=== PATIENT | male | born 1945 | race Two or more races ===

== ENCOUNTER 2022-12-25 19:32 | Inpatient (IN) | payer MEDICARE, OTHER ==
[~2022-12-25] VITALS: Ht 172.7 cm; Wt 91.6 kg
--- NOTE | 2022-12-25 23:12 | NUR ---
RN NOTES : ADMISSION NOTES: ADMITTED THIS 77Y/O MALE PATIENT ADMITTED FROM [facility], INITIALLY FROM [facility]. ADMITTED TO 5150 HOLD PER HOLD GD , DTO PT.HALUCINATION,HOPELESSNESS,SCHIZOPHRENIA. UPON FACE TO FACE ASSESSMENT PATIENT IS A&OX1 ,CONFUSED,ANXIOUS,DISHELVED,UNCOOPERTIVE,POOR DECISION MAKING, CHALLENGING,GUARDED, DENIES SI /HI AT THIS TIME, PT. IS POOR HISTORIAN, POOR INSIGHT ,POOR JUDGEMENT , BOTH MD AWARE AND NOTIFIED OF THE ADMISSION,BELONGINGS CONTRABAND WERE DONE , PT. REFUSED SIGNS ADMISSION CONSENT PAPER DUE TO CONFUSED,DISORGNIZED,PT. RIGHTS DISCUSS BY CASTING MACHINE OPERATOR , PROVIDE THE PT. WITH HANDBOOK, AND MEDICATIONS GUIDE, ENVIRONMENTAL SAFETY CHECK DONE, ENCOURAGED PT. VERBALIZED ANY FEELING CONCERN TO STAFF, ORIENT TO UNIT POLICY, NO ACUTE DISTRESS NOTED,VITAL SIGNS WNL ,DENIES ANY PAIN AT THIS TIME,WILL CONTINUE TO MONITOR FOR Q15 SAFETY AND BEHAVIOR.
[2022-12-25] MEDS ORDERED: BLOOD SUGAR DIAGNOSTIC 1 EACH STRIP IN ONE (23:30)
[2022-12-25] MEDS ORDERED: MAG HYDROX/AL HYDROX/SIMETH 30 ML UDC PO PRN (23:30)
[2022-12-25] MEDS ORDERED: clonazePAM 0.5 MG TABLET PO PRN (23:30)
[2022-12-25] MEDS ORDERED: TEMAZEPAM 7.5 MG CAPSULE PO PRN (23:30)
[2022-12-25] MEDS ORDERED: ACETAMINOPHEN 325 MG TABLET PO PRN (23:30)
[2022-12-25] MEDS ORDERED: MAGNESIUM HYDROXIDE 30 ML UDC PO PRN (23:30)
[2022-12-25 23:53] VITALS: BP 150/78
[2022-12-26] MEDS ORDERED: BENZ0.5T43 PO (03:04)
[2022-12-26] MEDS ORDERED: TAMS-12 PO (03:04)
[2022-12-26] MEDS ORDERED: METF-440 PO (03:04)
[2022-12-26] MEDS ORDERED: DOCU-141 PO (03:04)
[2022-12-26] MEDS ORDERED: MELO-105 PO (03:04)
[2022-12-26] MEDS ORDERED: POLY17PO4 PO (03:04)
[2022-12-26] MEDS ORDERED: BUSP10TA35 PO (03:04)
[2022-12-26] MEDS ORDERED: ERGO500040 PO (03:04)
[2022-12-26] MEDS ORDERED: FLUV50TA10 PO (03:04)
[2022-12-26] MEDS ORDERED: LISI10TA29 PO (03:04)
[2022-12-26] MEDS ORDERED: MELA3CAP2 PO (03:04)
[2022-12-26] MEDS ORDERED: NA P133E RC (03:04)
[2022-12-26] MEDS ORDERED: METH500T4 PO (03:04)
[2022-12-26] MEDS ORDERED: FINA5TAB3 PO (03:04)
[2022-12-26] MEDS ORDERED: LACT1CAP57 PO (03:04)
[2022-12-26] MEDS ORDERED: BISA-79 PO ×2 (03:04)
[2022-12-26] MEDS ORDERED: SENN-18 PO (03:04)
[2022-12-26 08:00] VITALS: BP 155/96
[2022-12-26] MEDS ORDERED: TEMAZEPAM 7.5 MG CAPSULE PO PRN (08:00)
[2022-12-26] MEDS ORDERED: clonazePAM 0.5 MG TABLET PO PRN (08:00)
[2022-12-26 08:04] LABS: CHOLESTEROL 131 mg/dL (<200); HDL CHOLESTEROL 35 mg/dL (40-60); LDL 93 mg/dL (0-99); TRIGLYCERIDES 79 mg/dL (30-150)
[2022-12-26 08:07] LABS: ALBUMIN 3.6 g/dL (3.4-5.0); BILIRUBIN,TOTAL 0.5 mg/dL (0.2-1.0); CREATININE 0.7 mg/dL (0.6-1.3); POTASSIUM 4.3 mmol/L (3.5-5.1); TOTAL PROTEIN, SERUM 7.4 g/dL (6.4-8.2)
[2022-12-26] MEDS ORDERED: busPIRone 5 MG TABLET PO SCH (09:00)
--- NOTE | 2022-12-26 12:14 | NUR ---
CHIVO Initial Discharge Note: Patient currently resides at [address] [place] [address]; ([phone]). Pt would want to go to a SNF. CHIVO will contact pt's daughter Aimee ([phone]) to gather collateral and discuss treatment/discharge plan. CHIVO will work with the pt, family, and MD to help coordinate appropriate discharge.
--- NOTE | 2022-12-26 12:15 | NUR ---
CHIVO Clinical Note: Pt placed on a 5150 hold for GD. Per hold, pt has been depressed. Patient currently resides at [address] [place] [address]; ([phone]). Pt would want to go to a SNF. CHIVO will contact pt's daughter Aimee ([phone]) to gather collateral and discuss treatment/discharge plan. CHIVO will work with the pt, family, and MD to help coordinate appropriate discharge.
[2022-12-26] MEDS: busPIRone 5 MG TABLET PO SCH ×2 (12:53→17:02)
--- NOTE | 2022-12-26 13:34 | NUR ---
CHIVO Family Contact: SW contacted pt's Yanick ([phone]) and discussed treatment/discharge plan. had concerned of pt return back home and would want this senior writer to find him placement.
[2022-12-26] MEDS ORDERED: NA PHOS,M-B/NA PHOS,DI-BA 1 EA ENEMA RC SCH (15:30)
[2022-12-26 16:00] VITALS: BP 144/96
[2022-12-26] MEDS: LACTOBACILLUS RHAMNOSUS GG 1 EACH CAP.SPRINK PO SCH (17:02)
[2022-12-26] MEDS: METFORMIN 500 MG TABLET PO SCH (17:03)
[2022-12-26] MEDS: POLYETHYLENE GLYCOL 3350 17 GM POWD.PACK PO SCH (17:03)
[2022-12-26] MEDS: MELOXICAM 7.5 MG TABLET PO SCH (17:03)
[2022-12-26] MEDS: LISINOPRIL (10MG) 10 MG TABLET PO SCH (17:04)
[2022-12-26] MEDS: FINASTERIDE (5 MG) 5 MG TABLET PO SCH (17:04)
--- NOTE | 2022-12-26 18:36 | NUR ---
RN CLOSING NOTE: MONITORED FOR HALLUCINATION,HOPELESSNESS,SCHIZOPHRENIA. PATIENT IS A&OX1 ,CONFUSED,ANXIOUS,DISHELVED, DENIES SI /HI AT THIS TIME, PT. POOR INSIGHT ,POOR JUDGEMENT. ENCOURAGED PT. VERBALIZED ANY FEELING CONCERN TO STAFF, ORIENT TO UNIT POLICY, NO ACUTE DISTRESS NOTED,VITAL SIGNS WNL ,DENIES ANY PAIN AT THIS TIME,WILL CONTINUE TO MONITOR FOR Q15 SAFETY AND BEHAVIOR.
[2022-12-26 19:35] VITALS: BP 130/82
[2022-12-26] MEDS: OLANZAPINE 10 MG TABLET PO SCH (22:29)
[2022-12-26] MEDS: FLUVOXAMINE MALEATE 50 MG TABLET PO SCH (22:30)
[2022-12-27 08:00] VITALS: BP 155/82
[2022-12-27] MEDS: METFORMIN 500 MG TABLET PO SCH ×2 (08:45→16:18)
[2022-12-27] MEDS: MELOXICAM 7.5 MG TABLET PO SCH (08:45)
[2022-12-27] MEDS: TAMSULOSIN 0.4 MG CAP.SR.24H PO SCH (08:45)
[2022-12-27] MEDS: POLYETHYLENE GLYCOL 3350 17 GM POWD.PACK PO SCH (08:45)
[2022-12-27] MEDS: busPIRone 5 MG TABLET PO SCH ×2 (08:45→16:19)
[2022-12-27] MEDS: LACTOBACILLUS RHAMNOSUS GG 1 EACH CAP.SPRINK PO SCH ×2 (08:46→16:18)
[2022-12-27] MEDS: LISINOPRIL (10MG) 10 MG TABLET PO SCH ×2 (08:46→16:19)
[2022-12-27] MEDS: SENNOSIDES 8.6 MG TABLET PO SCH (08:46)
[2022-12-27] MEDS: FINASTERIDE (5 MG) 5 MG TABLET PO SCH (08:47)
[2022-12-27] MEDS: BISACODYL (5 MG) 5 MG TABLET.DR PO SCH (09:56)
--- NOTE | 2022-12-27 10:14 | NUR ---
RN-CO: Received patient asleep, respiration even and unlabored. Patient took all his medications in the morning. He is unkempt and disheveled. He refused to groom.Refused to attend group activities. Patient stated I am anxious. He is unmotivated.i ENCOURAGED HIM TO SHOWER, VENTILATE HIS FEELINGS and attend groups.
[2022-12-27] MEDS: BLOOD SUGAR DIAGNOSTIC 1 EACH STRIP VI SCH ×3 (11:54→22:00)
[2022-12-27] MEDS ORDERED: DEXTROSE 50%-WATER 50 ML DISP.SYRIN IV PRN (12:00)
[2022-12-27] MEDS ORDERED: *INSULIN REGULAR(HUMULIN R)HUM 100 UNIT/ML VIAL SQ PRN (12:00)
[2022-12-27] MEDS ORDERED: INSULIN REGULAR, HUMAN 100 UNIT/ML 3 ML VIAL SQ PRN (12:00)
[2022-12-27 16:00] VITALS: BP 148/95
--- NOTE | 2022-12-27 17:07 | NUR ---
RN-CO: Patient refused his accheck this afternoonpt stated " I don't need that."
[2022-12-27] MEDS: diphenhydrAMINE HCL 25 MG CAPSULE PO PRN (17:36)
[2022-12-27 20:24] VITALS: BP 153/80
[2022-12-27] MEDS: FLUVOXAMINE MALEATE 50 MG TABLET PO SCH ×2 (21:31→22:23)
[2022-12-27] MEDS: OLANZAPINE 10 MG TABLET PO SCH (21:31)
[2022-12-28] MEDS: BLOOD SUGAR DIAGNOSTIC 1 EACH STRIP VI SCH ×4 (07:30→21:51)
[2022-12-28 08:00] VITALS: BP 98/138
[2022-12-28] MEDS: POLYETHYLENE GLYCOL 3350 17 GM POWD.PACK PO SCH (09:08)
[2022-12-28] MEDS: FINASTERIDE (5 MG) 5 MG TABLET PO SCH (09:08)
[2022-12-28] MEDS: MELOXICAM 7.5 MG TABLET PO SCH (09:08)
[2022-12-28] MEDS: LISINOPRIL (10MG) 10 MG TABLET PO SCH ×2 (09:08→17:45)
[2022-12-28] MEDS: METFORMIN 500 MG TABLET PO SCH ×2 (09:08→17:44)
[2022-12-28] MEDS: busPIRone 5 MG TABLET PO SCH ×2 (09:08→17:44)
[2022-12-28] MEDS: TAMSULOSIN 0.4 MG CAP.SR.24H PO SCH (09:09)
[2022-12-28] MEDS: LACTOBACILLUS RHAMNOSUS GG 1 EACH CAP.SPRINK PO SCH ×2 (09:09→17:44)
[2022-12-28] MEDS: SENNOSIDES 8.6 MG TABLET PO SCH (09:09)
[2022-12-28] MEDS: BISACODYL (5 MG) 5 MG TABLET.DR PO SCH (09:14)
[2022-12-28 18:45] VITALS: BP 145/96
--- NOTE | 2022-12-28 19:55 | NUR ---
SWITCHBOARD OPERATOR RECEPTIONIST NOTE;RECEIVED PATIENT IN BED AWAKE. A/OX2.PATIENT IS DISPLAYING NO APPARENT DISTRESS. BREATHING EVEN AND NON-LABORED WITH EQUAL RISE AND FALL OF THE CHEST.PATIENT IS UNKEMPT AND DISHEVELED.PATIENT IS ANXIOUS AND DEPRESSED.PATIENT STATED DON'T GIVE ME STRONG MEDICATION BECAUSE HE HAS A STRONG SIDE DEFECT.NO C/O PAIN OR DISCOMFORT AT THIS TIME.DENIES SI/HI AT THIS TIME. PATIENT IS MED COMPLIANT. ALL NEEDS MET AND ANTICIPATED.WILL CONTINUE TO MONITOR Q15 MINS FOR BEHAVIOR AND SAFETY WITH THE HELP OF STAFF.
[2022-12-28 21:06] VITALS: BP 126/84
[2022-12-28] MEDS: OLANZAPINE 10 MG TABLET PO SCH (21:22)
--- NOTE | 2022-12-28 21:52 | NUR ---
DRIER TENDER NAPHTHALENE NOTE. PATIENT REFUSED 2200 ACCUCHECK.PATIENT STATED " I DON'T EAT SWEATS".I JUST WANT TO GO TO SLEEP
[2022-12-29] MEDS: BLOOD SUGAR DIAGNOSTIC 1 EACH STRIP VI SCH ×4 (07:30→21:43)
--- NOTE | 2022-12-29 07:30 | NUR ---
PATIENT REFUSE BS CHECK AT 0730. PER PT HE DOESNT NEED IT. EXPLAINED RISK AND BENEFITS X3. CONT TO REFUSE X3. NO S/S OF HYPO/HYPERGLYCEMIA.
[2022-12-29 08:00] VITALS: BP 147/87
[2022-12-29] MEDS: POLYETHYLENE GLYCOL 3350 17 GM POWD.PACK PO SCH (08:07)
[2022-12-29] MEDS: BISACODYL (5 MG) 5 MG TABLET.DR PO SCH (08:08)
[2022-12-29] MEDS: LACTOBACILLUS RHAMNOSUS GG 1 EACH CAP.SPRINK PO SCH ×2 (08:08→16:05)
[2022-12-29] MEDS: busPIRone 5 MG TABLET PO SCH ×2 (08:08→16:05)
[2022-12-29] MEDS: METFORMIN 500 MG TABLET PO SCH ×2 (08:09→16:05)
[2022-12-29] MEDS: LISINOPRIL (10MG) 10 MG TABLET PO SCH ×2 (08:09→16:06)
[2022-12-29] MEDS: MELOXICAM 7.5 MG TABLET PO SCH (08:09)
[2022-12-29] MEDS: FINASTERIDE (5 MG) 5 MG TABLET PO SCH (08:09)
[2022-12-29] MEDS: TAMSULOSIN 0.4 MG CAP.SR.24H PO SCH (08:09)
[2022-12-29] MEDS: SENNOSIDES 8.6 MG TABLET PO SCH (08:09)
[2022-12-29] MEDS: DOCUSATE SODIUM 100 MG CAPSULE PO SCH (12:34)
--- NOTE | 2022-12-29 12:36 | NUR ---
PT REFUSE 1200 BS CHECK. PER PT HE DOESNT NEED IT. ENFORCED EDUCATION RISK AND BENEFITS. STILL REFUSING. NO S/S OF HYPO/HYPERGLYCEMIA NOTED.
--- NOTE | 2022-12-29 14:00 | NUR ---
PT IN BED AOX2. ABLE TO DENY PAIN OR DISCOMFORT. NO SOB. NO DYSPNEA. SKIN WARM AND DRY TO TOUCH. NOTED WITH BEHAVIOR PARANOID,ANXIOUS, NEEDS REASSURING, DENIES SI/HI AT THIS TIME. MEDS GIVEN ORDERED. REORIENTED PT TO PLACE TIME AND LOCATION. WILL CONT TO MONITOR.
[2022-12-29 16:00] VITALS: BP 114/66
--- NOTE | 2022-12-29 17:05 | NUR ---
BS AT 1730 REFUSED BY PATIENT. VERBALIZING "IM OK". EXPLAINED RISK AND BENEFITS X3. CONT TO REFUSE. NO S/S OF HYPO/HYPERGLYCEMIA NOTED.
--- NOTE | 2022-12-29 19:48 | NUR ---
RN NOTES: 1902 UPON ENDORSEMENT HE WAS LYING ON HIS BED, COMFORTABLE, ORIENTED TO UNIT AND STAFF, THEN HE GO BACK TO SLEEP.
[2022-12-29 20:00] VITALS: BP 125/66
[2022-12-29] MEDS: FLUVOXAMINE MALEATE 50 MG TABLET PO SCH (21:34)
[2022-12-29] MEDS: OLANZAPINE 10 MG TABLET PO SCH (21:34)
--- NOTE | 2022-12-29 21:44 | NUR ---
RN NOTES: BLOOD SUGAR 122, NO INSULIN PER SCALE.DUE MEDS GIVEN.
[2022-12-29] MEDS: diphenhydrAMINE HCL 25 MG CAPSULE PO PRN (23:04)
--- NOTE | 2022-12-29 23:04 | NUR ---
RN NOTES: HE WAS AWAKE, LOOKS ANXIOUS HE IS TELLING HE CANT SLEEP, LOOKING FOR SLEEPING PILL, OFFERED HIS BENADRYL, HE AGREED TO HAVE IT, NON PHARMACOLOGIC INTERVENTION RENDERED.
[2022-12-30] MEDS: BLOOD SUGAR DIAGNOSTIC 1 EACH STRIP VI SCH ×4 (07:30→21:35)
[2022-12-30 08:00] VITALS: BP 136/75
[2022-12-30] MEDS: BISACODYL (5 MG) 5 MG TABLET.DR PO SCH (09:37)
[2022-12-30] MEDS: busPIRone 5 MG TABLET PO SCH ×2 (09:37→17:10)
[2022-12-30] MEDS: METFORMIN 500 MG TABLET PO SCH ×2 (09:37→17:10)
[2022-12-30] MEDS: TAMSULOSIN 0.4 MG CAP.SR.24H PO SCH (09:38)
[2022-12-30] MEDS: LISINOPRIL (10MG) 10 MG TABLET PO SCH ×2 (09:38→17:10)
[2022-12-30] MEDS: SENNOSIDES 8.6 MG TABLET PO SCH (09:38)
[2022-12-30] MEDS: LACTOBACILLUS RHAMNOSUS GG 1 EACH CAP.SPRINK PO SCH ×2 (09:38→17:10)
[2022-12-30] MEDS: MELOXICAM 7.5 MG TABLET PO SCH (09:38)
[2022-12-30] MEDS: POLYETHYLENE GLYCOL 3350 17 GM POWD.PACK PO SCH (09:38)
[2022-12-30] MEDS: FINASTERIDE (5 MG) 5 MG TABLET PO SCH (09:38)
[2022-12-30 16:00] VITALS: BP 130/81
--- NOTE | 2022-12-30 19:00 | NUR ---
RN opening notes Received Pt from morning nurse. Pt is laying in the bed comfortably. Pt is alert and orientedX2-3, calm, anxious and meds compliant. On room air. No SOB. No S/s of distress noted. Pt denies SI/HI at this time. Reality orientation provided. Snacks is offered. safety precautions is maintained. Will continue to monitor Q 15 mins checks for safety and behavior.
[2022-12-30 20:00] VITALS: BP 134/74
[2022-12-30] MEDS: FLUVOXAMINE MALEATE 50 MG TABLET PO SCH (21:36)
--- NOTE | 2022-12-30 21:36 | NUR ---
RN notes Pt's BS 116. held coverage per level ordered. No S/s of distress noted.
[2022-12-30] MEDS: OLANZAPINE 10 MG TABLET PO SCH (21:37)
[2022-12-30] MEDS: diphenhydrAMINE HCL 25 MG CAPSULE PO PRN (22:26)
[2022-12-31] MEDS: BLOOD SUGAR DIAGNOSTIC 1 EACH STRIP VI SCH ×4 (07:30→21:08)
[2022-12-31 08:00] VITALS: BP 155/93
[2022-12-31] MEDS: TAMSULOSIN 0.4 MG CAP.SR.24H PO SCH (08:17)
[2022-12-31] MEDS: MELOXICAM 7.5 MG TABLET PO SCH (08:18)
[2022-12-31] MEDS: POLYETHYLENE GLYCOL 3350 17 GM POWD.PACK PO SCH (08:18)
[2022-12-31] MEDS: LISINOPRIL (10MG) 10 MG TABLET PO SCH ×2 (08:18→16:46)
[2022-12-31] MEDS: METFORMIN 500 MG TABLET PO SCH ×2 (08:18→16:45)
[2022-12-31] MEDS: SENNOSIDES 8.6 MG TABLET PO SCH (08:18)
[2022-12-31] MEDS: BISACODYL (5 MG) 5 MG TABLET.DR PO SCH (08:18)
[2022-12-31] MEDS: LACTOBACILLUS RHAMNOSUS GG 1 EACH CAP.SPRINK PO SCH ×2 (08:18→16:45)
[2022-12-31] MEDS: FINASTERIDE (5 MG) 5 MG TABLET PO SCH (08:18)
[2022-12-31] MEDS: busPIRone 5 MG TABLET PO SCH ×3 (08:19→16:45)
[2022-12-31 16:00] VITALS: BP 117/65
--- NOTE | 2022-12-31 16:22 | NUR ---
RN NOTES RECEIVED HANDOFF FROM NURSE BERGERON, ALTAGRACIA PATIENT IN THE ACTIVITY AREA WATCHING TV, AOX2, APPEARS WITHDRAWN AND ANXIOUS, ON ROOM AIR BREATHING WITHOUT ANY DIFFICULTY, PATIENT DENIED PAIN NOR DISCOMFORT, REFUSED BLOOD SUGAR CHECK, ENCOURAGED VERBALIZATION OF NEEDS, HE IS JUST WAITING FOR HIS TO CALL HIM BACK. WILL CONTINUE TO MONITOR.
--- NOTE | 2022-12-31 16:59 | NUR ---
RN NOTES REFUSED BUSPIRONE 10 MG DESPITE EDUCATION AND ENCOURAGEMENT, PATIENT WANTED TO JUST TAKE HALF OF THE DOSE, RETURNED THE MEDICATION.
--- NOTE | 2022-12-31 19:03 | NUR ---
GPS RN CLOSING NOTES PATIENT IS SLEEPING COMFORTABLY IN BED, EASILY AWAKEN, CALM, RESPONSIVE, AOX2, BREATHING ON ROOM AIR WITHOUT DIFFICULTY, NOT IN ANY FORM OF ACUTE DISTRESS, SAFETY MEASURES IN PLACE: BED IN LOWEST AND LOCKED POSITION, SIDE RAILS UP X2, TRAY TABLE WITHIN EASY REACH. WILL ENDORSE TO CAR BODY INSPECTOR NURSE.
[2022-12-31 20:33] VITALS: BP 154/94
[2022-12-31] MEDS: FLUVOXAMINE MALEATE 50 MG TABLET PO SCH (21:05)
[2022-12-31] MEDS: OLANZAPINE 10 MG TABLET PO SCH (21:05)
[2022-12-31] MEDS: diphenhydrAMINE HCL 25 MG CAPSULE PO PRN (21:23)
--- NOTE | 2022-12-31 22:00 | NUR ---
GPS-RN PATIENT REFUSED SCHEDULED ACCU CHECK DESPITE OF EDUCATION AND ENCOURAGEMENT. PT STRONGLY REFUSED. WILL CONTINUE TO MONITOR.
[2023-01-01] MEDS: BLOOD SUGAR DIAGNOSTIC 1 EACH STRIP VI SCH ×4 (07:30→21:27)
[2023-01-01 08:00] VITALS: BP 151/91
[2023-01-01] MEDS: LACTOBACILLUS RHAMNOSUS GG 1 EACH CAP.SPRINK PO SCH ×2 (08:40→16:39)
[2023-01-01] MEDS: BISACODYL (5 MG) 5 MG TABLET.DR PO SCH (08:40)
[2023-01-01] MEDS: TAMSULOSIN 0.4 MG CAP.SR.24H PO SCH (08:41)
[2023-01-01] MEDS: POLYETHYLENE GLYCOL 3350 17 GM POWD.PACK PO SCH (08:41)
[2023-01-01] MEDS: METFORMIN 500 MG TABLET PO SCH ×2 (08:41→16:39)
[2023-01-01] MEDS: SENNOSIDES 8.6 MG TABLET PO SCH (08:41)
[2023-01-01] MEDS: MELOXICAM 7.5 MG TABLET PO SCH (08:41)
[2023-01-01] MEDS: LISINOPRIL (10MG) 10 MG TABLET PO SCH ×2 (08:41→16:39)
[2023-01-01] MEDS: FINASTERIDE (5 MG) 5 MG TABLET PO SCH (08:41)
[2023-01-01] MEDS: busPIRone 5 MG TABLET PO SCH ×3 (08:41→16:38)
[2023-01-01 16:00] VITALS: BP 125/76
[2023-01-01 21:05] VITALS: BP 118/73
[2023-01-01] MEDS: OLANZAPINE 10 MG TABLET PO SCH (21:12)
[2023-01-01] MEDS: FLUVOXAMINE MALEATE 50 MG TABLET PO SCH (21:12)
--- NOTE | 2023-01-01 21:27 | NUR ---
GPS-RN PATIENT REFUSED SCHEDULED ACCUCHECK DESPITE OF EDUCATION AND ENCOURAGEMENT PROVIDED. PT CONTINUED TO REFUSED. PATIENT STATED "I AM ALRIGHT, I WANNA SLEEP". WILL CONTINUE TO MONITOR.
[2023-01-01] MEDS: diphenhydrAMINE HCL 25 MG CAPSULE PO PRN (22:00)
[2023-01-02] MEDS: BLOOD SUGAR DIAGNOSTIC 1 EACH STRIP VI SCH ×4 (07:29→21:43)
[2023-01-02 08:00] VITALS: BP 148/99
[2023-01-02] MEDS: METFORMIN 500 MG TABLET PO SCH ×2 (08:24→17:07)
[2023-01-02] MEDS: busPIRone 5 MG TABLET PO SCH ×3 (08:24→17:06)
[2023-01-02] MEDS: LACTOBACILLUS RHAMNOSUS GG 1 EACH CAP.SPRINK PO SCH ×2 (08:24→17:07)
[2023-01-02] MEDS: LISINOPRIL (10MG) 10 MG TABLET PO SCH ×2 (08:24→17:07)
[2023-01-02] MEDS: BISACODYL (5 MG) 5 MG TABLET.DR PO SCH (08:24)
[2023-01-02] MEDS: MELOXICAM 7.5 MG TABLET PO SCH (08:24)
[2023-01-02] MEDS: SENNOSIDES 8.6 MG TABLET PO SCH (08:24)
[2023-01-02] MEDS: TAMSULOSIN 0.4 MG CAP.SR.24H PO SCH (08:25)
[2023-01-02] MEDS: FINASTERIDE (5 MG) 5 MG TABLET PO SCH (08:25)
[2023-01-02] MEDS: POLYETHYLENE GLYCOL 3350 17 GM POWD.PACK PO SCH (08:29)
--- NOTE | 2023-01-02 14:21 | NUR ---
Court Notification: SW contacted pt's Yanick ([phone]) left a voicemail of [phone] hearing.
--- NOTE | 2023-01-02 14:21 | NUR ---
Court Hearing: Patient's court hearing for 9920 was today and it was upheld for GD.
[2023-01-02 16:08] VITALS: BP 123/79
--- NOTE | 2023-01-02 18:48 | NUR ---
RN- CLOSING NOTES PATIENT AWAKE, RESTING IN BED, BREATHING EVEN AND NON LABORED WITH NO S/S OF DISTRESS. PATIENT IS COOPERATIVE, GUARDED, ANXIOUS, DEPRESSED, SUSPICIOUS, NEEDY, AND ISOLATIVE. ENCOURAGED PATIENT TO LEAVE ROOM AND SOCIALIZE WITH STAFF. PATIENT VERBALIZED UNDERSTANDING AND JOINED TALKBACK HOST IN DINING ROOM. PATIENT IS MEDICATION RESISTANT BUT MEDICATION COMPLIANT WITH ENCOURAGEMENT. DENIES SI/HI AT THIS TIME. WILL CONTINUE TO MONITOR Q 15 MINUTES FOR SAFETY AND BEHAVIOR.
--- NOTE | 2023-01-02 19:30 | NUR ---
RN OPENING NOTES RECEIVED PATIENT AWAKE IN BED. PATIENT IS A/O TIMES 2. ABLE TO MAKE NEEDS KNOWN. NO PAIN NOTED. NO SOB NOTED. NO DISTRESS NOTED. ALL NEEDS ATTENDED. PATIENT IS AMBULATORY WITH STABLE GAIT. PATIENT DENIES SI/HI AT THIS TIME. ALL SAFETY MEASURES IN PLACE. BED LOCKED IN THE LOWEST POSITION. TABLE N EASY REACH. SIDE RAILS UP TIMES 2. WILL CONTINUE TO MONITOR CLOSELY.
[2023-01-02 20:14] VITALS: BP 125/90
[2023-01-02] MEDS: OLANZAPINE 10 MG TABLET PO SCH (21:03)
[2023-01-02] MEDS: FLUVOXAMINE MALEATE 50 MG TABLET PO SCH (21:03)
--- NOTE | 2023-01-02 22:00 | NUR ---
RN NOTES PATIENT REFUSED BLOOD SUGAR CHECK FOR 2200. EXPLAINED AND EDUCATE THE PATIENT FOR THE USE OF THE MEDICATION. STILL REFUSING. RESPECT PATIENT'S RIGHT.
[2023-01-02] MEDS: diphenhydrAMINE HCL 25 MG CAPSULE PO PRN (22:02)
--- NOTE | 2023-01-02 22:02 | NUR ---
RN NOTES BENADRYL PRN GIVEN PER PATIENT'S REQUEST FOR ANXIETY AT 2202 PM.
[2023-01-03] MEDS: BLOOD SUGAR DIAGNOSTIC 1 EACH STRIP VI SCH ×5 (06:36→21:23)
--- NOTE | 2023-01-03 06:37 | NUR ---
RN NOTES BLOOD SUGAR CHECKED , NOTED 101. NO INSULIN COVERAGE.
--- NOTE | 2023-01-03 06:41 | NUR ---
RN CLOSING NOTES PATIENT AWAKE IN BED. PATIENT IS A/O TIMES 2. ABLE TO MAKE NEEDS KNOWN. NO PAIN NOTED. NO SOB NOTED. NO DISTRESS NOTED. ALL NEEDS ATTENDED. DUE MEDS GIVEN ORDERED. PATIENT IS AMBULATORY WITH STABLE GAIT. PATIENT DENIES SI/HI AT THIS TIME. ALL SAFETY MEASURES IN PLACE. BED LOCKED IN THE LOWEST POSITION. TABLE IN EASY REACH. SIDE RAILS UP TIMES 2. WILL ENDORSE FOR LAKSHMI.
[2023-01-03 08:00] VITALS: BP 133/85
[2023-01-03] MEDS ORDERED: busPIRone 5 MG TABLET PO SCH ×2 (08:00→17:00)
[2023-01-03] MEDS: POLYETHYLENE GLYCOL 3350 17 GM POWD.PACK PO SCH (08:49)
[2023-01-03] MEDS: MELOXICAM 7.5 MG TABLET PO SCH (08:49)
[2023-01-03] MEDS: TAMSULOSIN 0.4 MG CAP.SR.24H PO SCH (08:50)
[2023-01-03] MEDS: LACTOBACILLUS RHAMNOSUS GG 1 EACH CAP.SPRINK PO SCH ×2 (08:50→17:00)
[2023-01-03] MEDS: SENNOSIDES 8.6 MG TABLET PO SCH (08:50)
[2023-01-03] MEDS: FINASTERIDE (5 MG) 5 MG TABLET PO SCH (08:50)
[2023-01-03] MEDS: LISINOPRIL (10MG) 10 MG TABLET PO SCH ×2 (08:50→16:35)
[2023-01-03] MEDS: METFORMIN 500 MG TABLET PO SCH ×2 (08:51→16:35)
[2023-01-03] MEDS: BISACODYL (5 MG) 5 MG TABLET.DR PO SCH (08:51)
[2023-01-03] MEDS: busPIRone 5 MG TABLET PO SCH ×3 (12:47→20:36)
--- NOTE | 2023-01-03 13:51 | NUR ---
SNF Contact: SW sent clinicals to Priya sales from [facility] ([phone]) for placement. SW sent H & P, medication list, and progress notes. Pt is accepted.
[2023-01-03 16:00] VITALS: BP 139/82
[2023-01-03 20:01] VITALS: BP 126/77
[2023-01-03] MEDS: FLUVOXAMINE MALEATE 50 MG TABLET PO SCH (20:44)
[2023-01-03] MEDS: OLANZAPINE 10 MG TABLET PO SCH (20:52)
[2023-01-03] MEDS: diphenhydrAMINE HCL 25 MG CAPSULE PO PRN (20:52)
--- NOTE | 2023-01-03 22:00 | NUR ---
RN NOTES PATIENT REFUSED BLOOD SUGAR MONITORING. WILL CONTINUE TO MONITOR.
[2023-01-04] MEDS: BLOOD SUGAR DIAGNOSTIC 1 EACH STRIP VI SCH ×4 (07:30→22:00)
[2023-01-04 08:00] VITALS: BP 155/85
[2023-01-04] MEDS: TAMSULOSIN 0.4 MG CAP.SR.24H PO SCH (08:20)
[2023-01-04] MEDS: POLYETHYLENE GLYCOL 3350 17 GM POWD.PACK PO SCH (08:20)
[2023-01-04] MEDS: MELOXICAM 7.5 MG TABLET PO SCH (08:20)
[2023-01-04] MEDS: LACTOBACILLUS RHAMNOSUS GG 1 EACH CAP.SPRINK PO SCH ×2 (08:20→16:39)
[2023-01-04] MEDS: METFORMIN 500 MG TABLET PO SCH ×2 (08:21→16:39)
[2023-01-04] MEDS: FINASTERIDE (5 MG) 5 MG TABLET PO SCH (08:21)
[2023-01-04] MEDS: SENNOSIDES 8.6 MG TABLET PO SCH (08:21)
[2023-01-04] MEDS: BISACODYL (5 MG) 5 MG TABLET.DR PO SCH (08:21)
[2023-01-04] MEDS: LISINOPRIL (10MG) 10 MG TABLET PO SCH ×2 (08:21→16:41)
[2023-01-04] MEDS: busPIRone 5 MG TABLET PO SCH ×4 (08:21→21:53)
--- NOTE | 2023-01-04 13:54 | NUR ---
CHIVO Family Contact: SW received a call from patient's daughter Darlyn ([phone]) and had left a voicemail. SW attempted to contact back and left a voicemail.
[2023-01-04 16:00] VITALS: BP 125/73
--- NOTE | 2023-01-04 17:41 | NUR ---
RN-NOTES PATIENT IS VISIBLE IN THE UNIT SELECTIVE WITH MEDICATIONS, REFUSED ACCU-CHECK THIS SHIFT. COMPLIANT WITH P.O MEDICATIONS. PATIENT ABLE TO MAKE NEEDS KNOWN TO THE STAFF AND ATTEND GROUPS. AMBULATORY STEADY GAIT. ALL NEEDS ATTENDED AND ANTICIPATED. WILL CONT. MONITORING FOR SAFETY AND BEHAVIOR. WILL ENDORSE TO INCOMING SHIFT /NURSE FOR THE CONTINUITY OF CARE.
--- NOTE | 2023-01-04 20:24 | NUR ---
PROFESSOR OF PHYSICAL EDUCATION NOTE;RECEIVED PATIENT IN DINING ROOM WATCHING TV A/OX2.PATIENT IS DISPLAYING NO APPARENT DISTRESS. BREATHING EVEN AND NON-LABORED WITH EQUAL RISE AND FALL OF THE CHEST.PATIENT IS UNKEMPT AND DISHEVELED.PATIENT IS ANXIOUS AND DEPRESSED.PATIENT STATED .NO C/O PAIN OR DISCOMFORT AT THIS TIME.DENIES SI/HI AT THIS TIME. PATIENT IS MED COMPLIANT. ALL NEEDS MET AND ANTICIPATED.WILL CONTINUE TO MONITOR Q15 MINS FOR BEHAVIOR AND SAFETY WITH THE HELP OF STAFF.
[2023-01-04] MEDS: OLANZAPINE 10 MG TABLET PO SCH (21:53)
[2023-01-04] MEDS: FLUVOXAMINE MALEATE 50 MG TABLET PO SCH (21:53)
--- NOTE | 2023-01-04 22:00 | NUR ---
CASHIER COURTESY BOOTH NOTE. PATIENT REFUSED 2200 ACCUCHECK.PATIENT STATED "I'M OK"
[2023-01-04] MEDS: diphenhydrAMINE HCL 25 MG CAPSULE PO PRN (23:45)
--- NOTE | 2023-01-04 23:46 | NUR ---
NOTE: BENADRYL PRN GIVEN PER PATIENT'S REQUEST FOR ANXIETY
[2023-01-05] MEDS: BLOOD SUGAR DIAGNOSTIC 1 EACH STRIP VI SCH ×4 (07:30→22:00)
[2023-01-05 08:00] VITALS: BP 153/86
[2023-01-05] MEDS: METFORMIN 500 MG TABLET PO SCH ×2 (08:10→17:16)
[2023-01-05] MEDS: MELOXICAM 7.5 MG TABLET PO SCH (08:10)
[2023-01-05] MEDS: TAMSULOSIN 0.4 MG CAP.SR.24H PO SCH (08:10)
[2023-01-05] MEDS: LACTOBACILLUS RHAMNOSUS GG 1 EACH CAP.SPRINK PO SCH ×2 (08:10→17:16)
[2023-01-05] MEDS: POLYETHYLENE GLYCOL 3350 17 GM POWD.PACK PO SCH (08:10)
[2023-01-05] MEDS: LISINOPRIL (10MG) 10 MG TABLET PO SCH ×2 (08:11→17:17)
[2023-01-05] MEDS: BISACODYL (5 MG) 5 MG TABLET.DR PO SCH (08:11)
[2023-01-05] MEDS: SENNOSIDES 8.6 MG TABLET PO SCH (08:11)
[2023-01-05] MEDS: busPIRone 5 MG TABLET PO SCH ×4 (08:11→21:14)
[2023-01-05] MEDS: FINASTERIDE (5 MG) 5 MG TABLET PO SCH (08:11)
--- NOTE | 2023-01-05 12:38 | NUR ---
CHIVO Family Contact: SW contacted pt's Yanick ([phone]) and discussed treatment and discharge plan. CHIVO notified that pt is accepted at [facility] and is agreeable of.
--- NOTE | 2023-01-05 14:21 | NUR ---
CHIVO Family Contact: CHIVO contacted pt's daughter Aimee ([phone]) and discussed treatment and discharge plan. She is aware of pt being accepted at [facility].
[2023-01-05 15:58] VITALS: BP 117/80
--- NOTE | 2023-01-05 18:05 | NUR ---
RN-NOTES PATIENT IS VISIBLE IN THE UNIT SELECTIVE WITH MEDICATIONS, REFUSED ACCU-CHECK THIS SHIFT. COMPLIANT WITH P.O MEDICATIONS. PATIENT ABLE TO MAKE NEEDS KNOWN TO THE STAFF AND ATTENDED GROUPS. AMBULATORY STEADY GAIT. ALL NEEDS ATTENDED AND ANTICIPATED. WILL CONT. MONITORING FOR SAFETY AND BEHAVIOR. WILL ENDORSE TO INCOMING SHIFT /NURSE FOR THE CONTINUITY OF CARE.
[2023-01-05] MEDS: FLUVOXAMINE MALEATE 50 MG TABLET PO SCH (21:14)
[2023-01-05] MEDS: OLANZAPINE 10 MG TABLET PO SCH (21:15)
--- NOTE | 2023-01-05 22:38 | NUR ---
NOTE: PATIENT REFUSED 2200 ACCUCHECK.
[2023-01-06] MEDS: BLOOD SUGAR DIAGNOSTIC 1 EACH STRIP VI SCH ×4 (07:28→22:00)
[2023-01-06 08:00] VITALS: BP 145/90
[2023-01-06] MEDS: POLYETHYLENE GLYCOL 3350 17 GM POWD.PACK PO SCH (08:15)
[2023-01-06] MEDS: METFORMIN 500 MG TABLET PO SCH ×2 (08:16→16:32)
[2023-01-06] MEDS: FINASTERIDE (5 MG) 5 MG TABLET PO SCH (08:16)
[2023-01-06] MEDS: TAMSULOSIN 0.4 MG CAP.SR.24H PO SCH (08:16)
[2023-01-06] MEDS: LACTOBACILLUS RHAMNOSUS GG 1 EACH CAP.SPRINK PO SCH ×2 (08:16→16:32)
[2023-01-06] MEDS: MELOXICAM 7.5 MG TABLET PO SCH (08:16)
[2023-01-06] MEDS: BISACODYL (5 MG) 5 MG TABLET.DR PO SCH (08:16)
[2023-01-06] MEDS: LISINOPRIL (10MG) 10 MG TABLET PO SCH ×2 (08:16→16:32)
[2023-01-06] MEDS: busPIRone 5 MG TABLET PO SCH ×4 (08:16→21:36)
[2023-01-06] MEDS: SENNOSIDES 8.6 MG TABLET PO SCH (08:16)
[2023-01-06 16:00] VITALS: BP 119/69
--- NOTE | 2023-01-06 19:45 | NUR ---
RUBBER ENGRAVER NOTE;RECEIVED PATIENT ON HIS ROOM RESTING IN BED .A/OX2.PATIENT IS DISPLAYING NO APPARENT DISTRESS. BREATHING EVEN AND NON-LABORED WITH EQUAL RISE AND FALL OF THE CHEST.PATIENT IS UNKEMPT AND DISHEVELED.PATIENT IS ANXIOUS AND DEPRESSED.PATIENT STATED .NO C/O PAIN OR DISCOMFORT AT THIS TIME.DENIES SI/HI AT THIS TIME. PATIENT IS MED COMPLIANT. ALL NEEDS MET AND ANTICIPATED.WILL CONTINUE TO MONITOR Q15 MINS FOR BEHAVIOR AND SAFETY WITH THE HELP OF STAFF.
[2023-01-06 20:43] VITALS: BP 135/87
[2023-01-06] MEDS: FLUVOXAMINE MALEATE 50 MG TABLET PO SCH (21:35)
[2023-01-06] MEDS: OLANZAPINE 10 MG TABLET PO SCH (21:36)
--- NOTE | 2023-01-06 22:02 | NUR ---
LAW RESEARCHER NOTE. PATIENT REFUSED 2200 ACCUCHECK.PATIENT STATED "I'M OK"
[2023-01-06] MEDS: diphenhydrAMINE HCL 25 MG CAPSULE PO PRN (23:08)
--- NOTE | 2023-01-06 23:10 | NUR ---
NOTE: BENADRYL PRN GIVEN PER PATIENT'S REQUEST FOR ANXIETY AT 2308 PM
[2023-01-07] MEDS: BLOOD SUGAR DIAGNOSTIC 1 EACH STRIP VI SCH ×4 (07:30→22:00)
[2023-01-07 08:00] VITALS: BP 146/98
[2023-01-07] MEDS: busPIRone 5 MG TABLET PO SCH ×4 (08:34→21:37)
[2023-01-07] MEDS: METFORMIN 500 MG TABLET PO SCH ×2 (08:34→17:07)
[2023-01-07] MEDS: LISINOPRIL (10MG) 10 MG TABLET PO SCH ×2 (08:35→17:08)
[2023-01-07] MEDS: MELOXICAM 7.5 MG TABLET PO SCH (08:35)
[2023-01-07] MEDS: TAMSULOSIN 0.4 MG CAP.SR.24H PO SCH (08:35)
[2023-01-07] MEDS: BISACODYL (5 MG) 5 MG TABLET.DR PO SCH (08:35)
[2023-01-07] MEDS: FINASTERIDE (5 MG) 5 MG TABLET PO SCH (08:35)
[2023-01-07] MEDS: SENNOSIDES 8.6 MG TABLET PO SCH (08:36)
[2023-01-07] MEDS: POLYETHYLENE GLYCOL 3350 17 GM POWD.PACK PO SCH (08:36)
[2023-01-07] MEDS: LACTOBACILLUS RHAMNOSUS GG 1 EACH CAP.SPRINK PO SCH ×2 (08:36→17:07)
[2023-01-07 16:00] VITALS: BP 131/83
[2023-01-07 20:10] VITALS: BP 127/79
[2023-01-07] MEDS: FLUVOXAMINE MALEATE 50 MG TABLET PO SCH (21:37)
[2023-01-07] MEDS: OLANZAPINE 10 MG TABLET PO SCH (21:37)
--- NOTE | 2023-01-07 22:00 | NUR ---
NOTE; PATIENT REFUSED 2200 ACCUCHECK.EXPLAINED R/B .PATIENT STATED "I'M OK".
[2023-01-08] MEDS: BLOOD SUGAR DIAGNOSTIC 1 EACH STRIP VI SCH ×4 (07:30→21:51)
[2023-01-08 08:00] VITALS: BP 140/83
[2023-01-08] MEDS: POLYETHYLENE GLYCOL 3350 17 GM POWD.PACK PO SCH (08:39)
[2023-01-08] MEDS: SENNOSIDES 8.6 MG TABLET PO SCH (08:39)
[2023-01-08] MEDS: FINASTERIDE (5 MG) 5 MG TABLET PO SCH (08:40)
[2023-01-08] MEDS: MELOXICAM 7.5 MG TABLET PO SCH (08:40)
[2023-01-08] MEDS: BISACODYL (5 MG) 5 MG TABLET.DR PO SCH (08:40)
[2023-01-08] MEDS: LISINOPRIL (10MG) 10 MG TABLET PO SCH ×2 (08:40→17:12)
[2023-01-08] MEDS: TAMSULOSIN 0.4 MG CAP.SR.24H PO SCH (08:40)
[2023-01-08] MEDS: LACTOBACILLUS RHAMNOSUS GG 1 EACH CAP.SPRINK PO SCH ×2 (08:40→17:12)
[2023-01-08] MEDS: METFORMIN 500 MG TABLET PO SCH ×2 (08:40→17:12)
[2023-01-08] MEDS: busPIRone 5 MG TABLET PO SCH ×4 (08:40→20:50)
[2023-01-08 16:00] VITALS: BP 115/79
--- NOTE | 2023-01-08 18:31 | NUR ---
NURSE NOTE: PT MED COMPLIANT, BUT REFUSED ACCU CHECK THROUGHOUT SHIFT.
[2023-01-08 20:00] VITALS: BP 115/80
[2023-01-08] MEDS: FLUVOXAMINE MALEATE 50 MG TABLET PO SCH (21:02)
[2023-01-08] MEDS: OLANZAPINE 10 MG TABLET PO SCH (21:02)
--- NOTE | 2023-01-08 21:52 | NUR ---
RN NOTE PT REFUSED ACCU CHEK DUE AT 2200
[2023-01-09] MEDS: BLOOD SUGAR DIAGNOSTIC 1 EACH STRIP VI SCH ×4 (07:30→22:00)
[2023-01-09 08:00] VITALS: BP 123/71
[2023-01-09] MEDS: POLYETHYLENE GLYCOL 3350 17 GM POWD.PACK PO SCH (08:32)
[2023-01-09] MEDS: SENNOSIDES 8.6 MG TABLET PO SCH (08:33)
[2023-01-09] MEDS: METFORMIN 500 MG TABLET PO SCH ×2 (08:33→18:11)
[2023-01-09] MEDS: BISACODYL (5 MG) 5 MG TABLET.DR PO SCH (08:33)
[2023-01-09] MEDS: LACTOBACILLUS RHAMNOSUS GG 1 EACH CAP.SPRINK PO SCH ×2 (08:33→18:10)
[2023-01-09] MEDS: busPIRone 5 MG TABLET PO SCH ×4 (08:33→21:00)
[2023-01-09] MEDS: TAMSULOSIN 0.4 MG CAP.SR.24H PO SCH (08:33)
[2023-01-09] MEDS: LISINOPRIL (10MG) 10 MG TABLET PO SCH ×2 (08:33→18:11)
[2023-01-09] MEDS: FINASTERIDE (5 MG) 5 MG TABLET PO SCH (08:33)
[2023-01-09] MEDS: MELOXICAM 7.5 MG TABLET PO SCH (08:34)
[2023-01-09 16:03] VITALS: BP 137/79
[2023-01-09 20:00] VITALS: BP 155/94
[2023-01-09 20:53] VITALS: BP 155/94
[2023-01-09] MEDS: OLANZAPINE 10 MG TABLET PO SCH (22:00)
[2023-01-09] MEDS: FLUVOXAMINE MALEATE 50 MG TABLET PO SCH (22:00)
--- NOTE | 2023-01-09 23:40 | NUR ---
refused ordered night time medication explained to him he would feel better and sleepbetter if medication taken with conversation he will not stay directed on subject offered medication x3
--- NOTE | 2023-01-10 04:33 | NUR ---
Nolberto Notes: Alert with confusion aware he is in a hospital and "wants to go home" he stated States "My is having sex with other men" walks around the floor carrying the Bible and Koran at 03:00 he was in the hallway he went down on his knees and elbows as if to pray I did not approach him he got up on his own and walked into his room He was at the nursing station many many times...with little notes Pls tell my I forgive her" Pls tell my to bring me my protestant stuff" Pls tell my to bring my razor" he writes these messages down on papre and hands it to the nurse. He taks in circles and difficult to have a conversation with him. he is confused He refused all his medication X3 last night "I don't need them all the time," refused accucheck at 2200. explanation given to him and told him he sleep better and feel great in the AM contiued to refuse all medication He has been awake this entire 12 hour shift sleeping 0 hours
[2023-01-10] MEDS: BLOOD SUGAR DIAGNOSTIC 1 EACH STRIP VI SCH ×4 (07:30→21:18)
[2023-01-10 08:00] VITALS: BP 155/78
--- NOTE | 2023-01-10 08:11 | NUR ---
Discharge Note: Patient will be discharged to [facility] [address] [place] [address] ([phone]). Please arrange ambulance transportation. Spoke with Xuan, Admin Coordinator at the facility who states they are ready to accept the patient today. Patient is alert and oriented x3. Patient denies any suicidal or homicidal ideation. Patients Yanick ([phone]) is aware and agreeable. Patient will continue to follow-up with her (Psychiatrist) Dr. [place] [address] [place] [address]; ([phone]) and Communication Spec Dr. Curry [address] [address]; ([phone]). Patient presents with euthymic mood and congruent affect. Addendum: 01/10/23 at 1127 by CHIVO MACKAY Discharge canceled due to pt being manic. Dr. You aware.
[2023-01-10] MEDS: LACTOBACILLUS RHAMNOSUS GG 1 EACH CAP.SPRINK PO SCH ×2 (08:32→16:42)
[2023-01-10] MEDS: POLYETHYLENE GLYCOL 3350 17 GM POWD.PACK PO SCH (08:32)
[2023-01-10] MEDS: FINASTERIDE (5 MG) 5 MG TABLET PO SCH (08:33)
[2023-01-10] MEDS: busPIRone 5 MG TABLET PO SCH ×4 (08:33→21:12)
[2023-01-10] MEDS: METFORMIN 500 MG TABLET PO SCH ×2 (08:33→16:43)
[2023-01-10] MEDS: BISACODYL (5 MG) 5 MG TABLET.DR PO SCH (08:33)
[2023-01-10] MEDS: SENNOSIDES 8.6 MG TABLET PO SCH (08:33)
[2023-01-10] MEDS: TAMSULOSIN 0.4 MG CAP.SR.24H PO SCH (08:33)
[2023-01-10] MEDS: LISINOPRIL (10MG) 10 MG TABLET PO SCH ×2 (08:33→16:43)
[2023-01-10] MEDS: MELOXICAM 7.5 MG TABLET PO SCH (08:34)
--- NOTE | 2023-01-10 09:05 | NUR ---
NURSE NOTE: PT ANXIOUS, PARANOID, PREOCCUPIED IN OWN THOUGHTS, INTRUSIVE, DIFFICULT TO REDIRECT, POOR INSIGHT, DEMENTED, ARGUMENTATIVE, YELLING AT STAFF, HITTING WALL, AND NO BOUNDARIES. REFUSED MEDS THIS AM. REFUSED AM ACCUCHECK. DR AUGUSTIN NOTIFIED OF PTS STATUS AT THIS TIME, WAITING FOR RESPONSE.
--- NOTE | 2023-01-10 10:00 | NUR ---
RN-CO: Notified Dr You regarding patient's behavior today, pt did not sleep last night, refused his am medications, he is loud, invasive, extremely restless and non redirectable. He is scheduled for discharge today however due to his declining mental state Dr You canceled his discharge . PROGRAM ARRANGER notified his family.
--- NOTE | 2023-01-10 11:00 | NUR ---
NURSE NOTE: DR MONTOYA SPOKE WITH RN MADDI GOFF ON PTS BEHAVIOR. DR MONTOYA SAID THAT HE WOULD GO OVER THE PTS CHART AND GET BACK TO NURSE.
[2023-01-10] MEDS: diphenhydrAMINE HCL 25 MG CAPSULE PO PRN (13:06)
--- NOTE | 2023-01-10 13:06 | NUR ---
NURSE NOTE: PT STATED THAT HE WOULD TAKE 1300 MED. ANXIOUS AT THIS TIME, HYPERVERBAL, INTRUSIVE, PACING FROM RM TO NURSE STATION. BENADRYL GIVEN AT THIS TIME FOR ANXIETY. PT LISSET WELL. WILL CONT TO MONITOR.
--- NOTE | 2023-01-10 14:00 | NUR ---
NURSE NOTE: PT CONT RESTLESS, RACING THOUGHTS, AND NOT ABLE TO REDIRECT. PT REQUESTED SOMETHING TO HELP. DR MONTOYA NOTIFIED. ORDERED. THORAZINE 50 MG IM AT THIS TIME. WILL CONT TO MONITOR.
--- NOTE | 2023-01-10 14:26 | NUR ---
NURSE NOTE: PT VOLUNTARILY TOOK THORAZINE IM. IM GIVEN TO R BUTTOCKS. PT LISSET WELL. WILL CONT TO MONITOR.
--- NOTE | 2023-01-10 15:30 | NUR ---
NURSE NOTE: PT CALM AT THIS TIME. THORAZINE EFFECTIVE. WILL CONT TO MONITOR. WILL CONT TO MONITOR.
[2023-01-10 16:00] VITALS: BP 116/63
[2023-01-10 19:55] VITALS: BP 110/73
[2023-01-10] MEDS: FLUVOXAMINE MALEATE 50 MG TABLET PO SCH (21:12)
[2023-01-10] MEDS: OLANZAPINE 5 MG TABLET PO SCH (21:16)
--- NOTE | 2023-01-10 21:20 | NUR ---
Pt refused blood sugar check. Explained risk and benefits. Offered x 3 and still refused. Pt states, " i don't need that". No s/s of any kind of distress. No s/s of hypo/hyperglycemia. Will continue to monitor. Will endorse to next shift.
[2023-01-11] MEDS: BLOOD SUGAR DIAGNOSTIC 1 EACH STRIP VI SCH ×4 (07:30→21:38)
[2023-01-11 08:00] VITALS: BP 134/77
[2023-01-11] MEDS: POLYETHYLENE GLYCOL 3350 17 GM POWD.PACK PO SCH (09:07)
[2023-01-11] MEDS: LISINOPRIL (10MG) 10 MG TABLET PO SCH ×2 (09:07→16:26)
[2023-01-11] MEDS: busPIRone 5 MG TABLET PO SCH ×4 (09:07→21:38)
[2023-01-11] MEDS: MELOXICAM 7.5 MG TABLET PO SCH (09:07)
[2023-01-11] MEDS: LACTOBACILLUS RHAMNOSUS GG 1 EACH CAP.SPRINK PO SCH ×2 (09:07→16:26)
[2023-01-11] MEDS: SENNOSIDES 8.6 MG TABLET PO SCH (09:07)
[2023-01-11] MEDS: METFORMIN 500 MG TABLET PO SCH ×2 (09:07→16:26)
[2023-01-11] MEDS: FINASTERIDE (5 MG) 5 MG TABLET PO SCH (09:07)
[2023-01-11] MEDS: TAMSULOSIN 0.4 MG CAP.SR.24H PO SCH (09:07)
[2023-01-11] MEDS: BISACODYL (5 MG) 5 MG TABLET.DR PO SCH (09:07)
[2023-01-11 16:00] VITALS: BP 107/71
--- NOTE | 2023-01-11 17:32 | NUR ---
RN-NOTES PATIENT IS VISIBLE IN THE UNIT,GUARDED QUIET ,CALM A/O X3.PATIENT ABLE TO VERBALIZED FEELINGS AND CONCERN TO THE STAFF ,MINIMAL PARTICIPATION IN THE GROUP ACTIVITIES.COMPLIANT WITH MEDICATIONS. AMBULATORY STEADY GAIT. ALL NEEDS ATTENDED AND ANTICIPATED. WILL CONT.MONITORING FOR SAFETY AND BEHAVIOR. WILL ENDORSE TO INCOMING SHIFT FOR THE CONTINUITY OF CARE. Addendum: 01/11/23 at 1738 by FACUNDO BULLOCK RN PATIENT REFUSED ACCU CHECK THIS SHIFT DESPITE EXPLANATIONS OF THE RISK AND BENEFITS. PATIENT STATED" I'M FINE NO NEED TO CHECK MY BLOOD SUGAR".NO HYPO/HYPERGLYCEMIA NOTED.
--- NOTE | 2023-01-11 19:48 | NUR ---
NURSE NOTE: PT.WALKING AROUND THE UNIT. PT A/O X2, ANXIOUS, PARANOID, NEEDY ,EASILY AGITATED NEEDS FREQUENT REDIRECTIONS, PREOCCUPIED IN OWN THOUGHTS, DEPRESSED, POOR INSIGHT,SAFETY PRECAUTIONS MAINTAINED, ENCOURAGED TO VERBALIZED ANY FEELING OR CONCERN , FAMILY VISTED ,WILL CONT TO MONITOR FOR SAFETY AND BEHAVIOR.
[2023-01-11 20:00] VITALS: BP 117/80
[2023-01-11] MEDS: FLUVOXAMINE MALEATE 50 MG TABLET PO SCH (21:38)
[2023-01-11] MEDS: OLANZAPINE 5 MG TABLET PO SCH (21:38)
--- NOTE | 2023-01-11 21:39 | NUR ---
RN NOTES: REFUSED ACCU CHECK PT.REFUSED SCHEDULE ACCU CHECK,ENCOURAGED X3 RISKS AND BENEFITS EXPLAINED ,PER PT. STATES I DON'T NEED TO BE BS CHECK .STRONGLY REFUSED.
--- NOTE | 2023-01-12 06:27 | NUR ---
GPS RN NOTE: PATIENT RESTING IN BED 9 HOURS OF SLEEP, NO S/S OF DISTRESS OR DISCOMFORT. PT. BEHAVIOR COOPERTIVE ,BUT EASILY AGITATED, PARANOID, THROUGHOUT SHIFT, NEEDS FREQUENTLY REDIRECTIONS , NO S/S OF RESPIRATORY DISTRESS. PT. MED COMPLIANT AT THIS SHIFT, BUT REFUSED ACCU CHECK ,SAFETY PRECAUTIONS MAINTAINED, ALL NEEDS ATTENDED AND ANTICIPATED, WILL CONTINUE TO MONITOR FOR SAFETY AND BEHAVIOR.
[2023-01-12] MEDS: BLOOD SUGAR DIAGNOSTIC 1 EACH STRIP VI SCH ×4 (07:30→21:35)
[2023-01-12 08:00] VITALS: BP 148/84
[2023-01-12] MEDS: POLYETHYLENE GLYCOL 3350 17 GM POWD.PACK PO SCH (08:22)
[2023-01-12] MEDS: LACTOBACILLUS RHAMNOSUS GG 1 EACH CAP.SPRINK PO SCH ×2 (08:22→16:10)
[2023-01-12] MEDS: BISACODYL (5 MG) 5 MG TABLET.DR PO SCH (08:22)
[2023-01-12] MEDS: TAMSULOSIN 0.4 MG CAP.SR.24H PO SCH (08:22)
[2023-01-12] MEDS: MELOXICAM 7.5 MG TABLET PO SCH (08:23)
[2023-01-12] MEDS: busPIRone 5 MG TABLET PO SCH ×4 (08:23→21:29)
[2023-01-12] MEDS: METFORMIN 500 MG TABLET PO SCH ×2 (08:23→16:10)
[2023-01-12] MEDS: LISINOPRIL (10MG) 10 MG TABLET PO SCH ×2 (08:23→16:10)
[2023-01-12] MEDS: FINASTERIDE (5 MG) 5 MG TABLET PO SCH (08:23)
[2023-01-12] MEDS: SENNOSIDES 8.6 MG TABLET PO SCH (08:23)
[2023-01-12 15:56] VITALS: BP 126/66
--- NOTE | 2023-01-12 19:58 | NUR ---
SENIOR QUALITY ANALYST NOTE;RECEIVED PATIENT ON HIS ROOM RESTING IN BED ASLEEP BUT EASY TO AROUSE .A/OX2-3.PATIENT IS DISPLAYING NO APPARENT DISTRESS. BREATHING EVEN AND NON-LABORED WITH EQUAL RISE AND FALL OF THE CHEST.PATIENT IS UNKEMPT AND DISHEVELED.PATIENT IS ANXIOUS AND DEPRESSED.NO C/O PAIN OR DISCOMFORT AT THIS TIME.DENIES SI/HI AT THIS TIME. PATIENT IS MED COMPLIANT. ALL NEEDS MET AND ANTICIPATED.WILL CONTINUE TO MONITOR Q15 MINS FOR BEHAVIOR AND SAFETY WITH THE HELP OF STAFF.
[2023-01-12 20:00] VITALS: BP 115/65
[2023-01-12] MEDS: FLUVOXAMINE MALEATE 50 MG TABLET PO SCH (21:29)
[2023-01-12] MEDS: OLANZAPINE 5 MG TABLET PO SCH (21:30)
--- NOTE | 2023-01-12 21:36 | NUR ---
DIRECTOR OF PRODUCT MARKETING NOTE : PATIENT REFUSED 2200 ACCU CHECK PT.REFUSED SCHEDULE ACCU CHECK,ENCOURAGED X3 RISKS AND BENEFITS EXPLAINED ,PER PT. STATES I DON'T NEED TO BE BS CHECK .STRONGLY REFUSED.
[2023-01-12] MEDS: diphenhydrAMINE HCL 25 MG CAPSULE PO PRN (23:52)
--- NOTE | 2023-01-12 23:53 | NUR ---
NOTE:: BENADRYL PRN GIVEN PER PATIENT'S REQUEST FOR ANXIETY AT 2353 PM
[2023-01-13] MEDS: BLOOD SUGAR DIAGNOSTIC 1 EACH STRIP VI SCH ×4 (07:30→21:07)
[2023-01-13 08:00] VITALS: BP 143/85
[2023-01-13] MEDS: POLYETHYLENE GLYCOL 3350 17 GM POWD.PACK PO SCH (08:06)
[2023-01-13] MEDS: METFORMIN 500 MG TABLET PO SCH ×2 (08:06→16:11)
[2023-01-13] MEDS: MELOXICAM 7.5 MG TABLET PO SCH (08:07)
[2023-01-13] MEDS: SENNOSIDES 8.6 MG TABLET PO SCH (08:07)
[2023-01-13] MEDS: busPIRone 5 MG TABLET PO SCH ×4 (08:07→20:42)
[2023-01-13] MEDS: BISACODYL (5 MG) 5 MG TABLET.DR PO SCH (08:07)
[2023-01-13] MEDS: TAMSULOSIN 0.4 MG CAP.SR.24H PO SCH (08:07)
[2023-01-13] MEDS: LACTOBACILLUS RHAMNOSUS GG 1 EACH CAP.SPRINK PO SCH ×2 (08:07→16:11)
[2023-01-13] MEDS: FINASTERIDE (5 MG) 5 MG TABLET PO SCH (08:07)
[2023-01-13] MEDS: LISINOPRIL (10MG) 10 MG TABLET PO SCH ×2 (08:08→16:12)
[2023-01-13 16:00] VITALS: BP 108/74
--- NOTE | 2023-01-13 20:20 | NUR ---
RN NOTES: PT.WALKING AROUND THE UNIT. PT A/O X2, ANXIOUS, PARANOID, NEEDY ,EASILY AGITATED NEEDS FREQUENT REDIRECTIONS, PREOCCUPIED IN OWN THOUGHTS, DEPRESSED, POOR INSIGHT,SAFETY PRECAUTIONS MAINTAINED, ENCOURAGED TO VERBALIZED ANY FEELING OR CONCERN , FAMILY VISTED ,WILL CONT TO MONITOR .
[2023-01-13 20:43] VITALS: BP 150/85
[2023-01-13] MEDS: OLANZAPINE 5 MG TABLET PO SCH (21:07)
[2023-01-13] MEDS: FLUVOXAMINE MALEATE 50 MG TABLET PO SCH (21:07)
--- NOTE | 2023-01-13 21:52 | NUR ---
RN NOTES: REFUSED ACCU CHECK PT.REFUSED SCHEDULE ACCU CHECK,ENCOURAGED X3 RISKS AND BENEFITS EXPLAINED ,PER PT. STATES I DON'T NEED TO BE BS CHECK .STRONGLY REFUSED. BUT PATIENT COMPLIANT WITH NIGHT SCHEDULE MEDS.
[2023-01-14] MEDS: BLOOD SUGAR DIAGNOSTIC 1 EACH STRIP VI SCH ×4 (07:30→22:00)
[2023-01-14 08:00] VITALS: BP 165/90
[2023-01-14] MEDS: TAMSULOSIN 0.4 MG CAP.SR.24H PO SCH (08:02)
[2023-01-14] MEDS: MELOXICAM 7.5 MG TABLET PO SCH (08:02)
[2023-01-14] MEDS: FINASTERIDE (5 MG) 5 MG TABLET PO SCH (08:02)
[2023-01-14] MEDS: POLYETHYLENE GLYCOL 3350 17 GM POWD.PACK PO SCH (08:02)
[2023-01-14] MEDS: METFORMIN 500 MG TABLET PO SCH ×2 (08:03→16:30)
[2023-01-14] MEDS: SENNOSIDES 8.6 MG TABLET PO SCH (08:03)
[2023-01-14] MEDS: LISINOPRIL (10MG) 10 MG TABLET PO SCH ×2 (08:03→16:31)
[2023-01-14] MEDS: LACTOBACILLUS RHAMNOSUS GG 1 EACH CAP.SPRINK PO SCH ×2 (08:03→16:30)
[2023-01-14] MEDS: busPIRone 5 MG TABLET PO SCH ×4 (08:03→21:04)
[2023-01-14] MEDS: BISACODYL (5 MG) 5 MG TABLET.DR PO SCH (08:04)
[2023-01-14 15:59] VITALS: BP 128/78
[2023-01-14] MEDS: DOCUSATE SODIUM 100 MG CAPSULE PO SCH (16:06)
[2023-01-14 20:08] VITALS: BP 138/69
[2023-01-14] MEDS: FLUVOXAMINE MALEATE 50 MG TABLET PO SCH (21:05)
[2023-01-14] MEDS: OLANZAPINE 5 MG TABLET PO SCH (21:05)
--- NOTE | 2023-01-14 21:13 | NUR ---
Pt A/O x3 able to make needs known. Pt is anxious and paranoid but compliant with PM medications. Covid test done for possible discharge in the morning to [facility]. Charge nurse aware. Will endorse to next shift.
--- NOTE | 2023-01-14 22:16 | NUR ---
Pt refused blood sugar check. Explained risk and benefits. Offered x 3 and still refused. Pt states, " I don't need my blood sugar checked ". No s/s of any kind of distress. No s/s of hypo/hyperglycemia. Will continue to monitor. Will endorse to next shift.
[2023-01-15] MEDS: BLOOD SUGAR DIAGNOSTIC 1 EACH STRIP VI SCH ×2 (07:30→12:00)
[2023-01-15 08:00] VITALS: BP 127/64
--- NOTE | 2023-01-15 08:00 | NUR ---
RN-CO: Patient was seen and examined by Dr Sheikh and ordered to discontinue hold and discharge patient to [facility]. Dr Aguilar also seen and examined the patient, medically cleared him for discharge and reconciled home medications.
--- NOTE | 2023-01-15 08:01 | NUR ---
SW Discharge Note: Patient will be discharged to [facility] [address] [place] [address] ([phone]). Please arrange ambulance transportation. Spoke with Xuan, Admin Coordinator at the facility who states they are ready to accept the patient today. Patient is alert and oriented x3. Patient denies any suicidal or homicidal ideation. Patients Siounit ([phone]) is aware and agreeable. Patient will continue to follow-up with her (Psychiatrist) Dr. [place] at [address] [place] [address]; ([phone]) and Account Solutions Analyst Dr. Curry [address] [address]; ([phone]). Patient presents with euthymic mood and congruent affect.
[2023-01-15 08:21] VITALS: BP 127/64
[2023-01-15] MEDS: FINASTERIDE (5 MG) 5 MG TABLET PO SCH (08:21)
[2023-01-15] MEDS: METFORMIN 500 MG TABLET PO SCH (08:21)
[2023-01-15] MEDS: BISACODYL (5 MG) 5 MG TABLET.DR PO SCH (08:21)
[2023-01-15] MEDS: LISINOPRIL (10MG) 10 MG TABLET PO SCH (08:21)
[2023-01-15] MEDS: POLYETHYLENE GLYCOL 3350 17 GM POWD.PACK PO SCH (08:22)
[2023-01-15] MEDS: busPIRone 5 MG TABLET PO SCH ×2 (08:22→13:10)
[2023-01-15] MEDS: MELOXICAM 7.5 MG TABLET PO SCH (08:22)
[2023-01-15] MEDS: SENNOSIDES 8.6 MG TABLET PO SCH (08:22)
[2023-01-15] MEDS: LACTOBACILLUS RHAMNOSUS GG 1 EACH CAP.SPRINK PO SCH (08:22)
[2023-01-15] MEDS: TAMSULOSIN 0.4 MG CAP.SR.24H PO SCH (08:22)
--- NOTE | 2023-01-15 13:40 | NUR ---
NURSE NOTE: 77 YR OLD MALE DISCHARGED TO [facility] IN STABLE [place]. COMPLIANT WITH MEDS, COOPERATIVE WITH TREATMENT PLANS. PT DENIES SI/HI AND INSTRUCTED TO LET STAFF KNOW OR CALL 911 IF DEVELOPING SI/HI. BEHAVIOR IMPROVED, PSYCHIATRIC TX PLANS MET, MEDICAL TX PLANS DEFERRED FOR CONT MONITORING. EDUCATED PT ON AFTER CARE PLAN AND COPY PROVIDED. RETURNED PERSONAL BELONGINGS TO PT. DR TEIXEIRA DISCONTINUED HOLD AND BOTH DR TEIXEIRA AND DR JOSEPH DISCHARGED PT. MEDS RECONCILED WITH DR TEIXEIRA AND DR JOSEPH. REPORT GIVEN TO FARA BANKS AT [facility] FOR CONTINUITY OF CARE. PT REFUSED TO SIGN DISCHARGE PAPERWORK. AWARE OF PTS DISCHARGE. PT LEFT THE UNIT AT 1336 VIA AMBULANCE. Addendum: 01/15/23 at 1514 by THEA VIGIL RN ERROR: NOT DR TEIXEIRA, IT WAS DR MONTOYA THAT DISCONTINUED THE HOLD, DISCHARGED PT, AND RECONCILED THE MEDS. PT TO FOLLOW UP WITH DR PALACIO (PSYCH) AND DR PATTON (MED).
== END 2023-01-15 13:36 | DRG 885 ==
LOC: GPS 22:48
PROVIDERS: ADMIT Psychiatry & Neurology Psychiatry; ATTEND Internal Medicine
DX: F33.3 Major depressive disorder, recurrent, severe with psychotic symptoms (principal); D68.69 Other thrombophilia; F29 Unspecified psychosis not due to a substance or known physiological condition; F41.9 Anxiety disorder, unspecified; E66.01 Morbid (severe) obesity due to excess calories; E11.9 Type 2 diabetes mellitus without complications; E78.5 Hyperlipidemia, unspecified; I10 Essential (primary) hypertension; N40.0 Benign prostatic hyperplasia without lower urinary tract symptoms; Z20.822 Contact with and (suspected) exposure to COVID-19; Z79.84 Long term (current) use of oral hypoglycemic drugs; Z68.30 Body mass index [BMI] 30.0-30.9, adult; Z73.6 Limitation of activities due to disability
CPT/HCPCS: 36415; 80053-TC; 80061-TC; 82962-TC; J1815; J3230; Q0163